=== PATIENT | female | born 1955 | race Caucasian/White ===

== ENCOUNTER 2021-09-17 17:58 | Inpatient (IN) | payer MEDICARE, MEDICAID ==
[2021-09-17] MEDS ORDERED: Albuterol/Ipratropium 3.0-0.5 MG/3 ML Neb Soln NEB ONE ×2 (18:18→18:19)
[2021-09-17] MEDS ORDERED: methylPREDNISolone Sodium Succinate 125 MG/2 ML SDV IVPUSH ONE (18:18)
[2021-09-17] MEDS ORDERED: Codeine/guaiFENesin 10-100 MG/5 ML Syrup 5 ML Cup PO ONE (19:54)
[2021-09-17 19:55] LABS: CARBON DIOXIDE,CO2 28.4 mmol/L (21.0-32.0); POTASSIUM,K 3.8 mmol/L (3.5-5.1)
[2021-09-17] MEDS ORDERED: REMDESIVIR 200 MG in Sodium Chloride 0.9% 250 ML IV ONE (20:16)
[2021-09-17] MEDS ORDERED: Dexamethasone 10 MG/ML SDV IVPUSH ONE (20:18)
[2021-09-17] MEDS ORDERED: Ondansetron 4 MG/2 ML SDV IVPUSH PRN (21:38)
[2021-09-17] MEDS ORDERED: Albuterol/Ipratropium 3.0-0.5 MG/3 ML Neb Soln NEB PRN (21:38)
[2021-09-17] MEDS ORDERED: Acetaminophen 325 MG Tab PO PRN (21:38)
[2021-09-17] MEDS: Pantoprazole 40 MG in Sodium Chloride 0.9% 10 ML IVPUSH SCH (22:44)
[2021-09-17] MEDS: Nicotine 14 MG/24 Hr Patch TRDERM SCH (22:44)
[2021-09-18] MEDS ORDERED: LORazepam 2 MG/ML SDV IVPUSH ONE (00:16)
[2021-09-18] MEDS: Morphine 30 MG Tab.ER PO SCH ×3 (00:32→22:58)
[2021-09-18] MEDS: Gabapentin 300 MG Cap PO SCH ×3 (00:33→20:46)
[2021-09-18] MEDS: Acetaminophen/HYDROcodone 325-10 MG Tab PO PRN ×2 (00:33→20:46)
[2021-09-18] MEDS ORDERED: Cyclobenzaprine 10 MG Tab PO PRN (02:46)
[2021-09-18] MEDS ORDERED: Lactated Ringers 1,000 ML IV ONE ×2 (03:55→18:12)
[2021-09-18] MEDS ORDERED: Lactated Ringers 1,000 ML IV SCH (05:00)
[2021-09-18] MEDS: Piperacillin/Tazobactam 3.375 GM in Sodium Chloride 0.9% 50 ML IV SCH ×4 (05:18→22:59)
[2021-09-18 07:50] LABS: CARBON DIOXIDE,CO2 24.1 mmol/L (21.0-32.0); POTASSIUM,K 4.3 mmol/L (3.5-5.1)
[2021-09-18] MEDS: Dexamethasone 4 MG Tab PO SCH (09:39)
[2021-09-18] MEDS: Nicotine 14 MG/24 Hr Patch TRDERM SCH (09:40)
[2021-09-18] MEDS: REMDESIVIR 100 MG in Sodium Chloride 0.9% 100 ML IV SCH (10:55)
[2021-09-18] MEDS ORDERED: Lactated Ringers 500 ML IV ONE (12:39)
[2021-09-18] MEDS: Warfarin Sliding Scale PO SCH (16:08)
[2021-09-18] MEDS ORDERED: Magnesium Sulfate/Water 2 GM in Premix Bag 1 BAG IV ONE (16:48)
[2021-09-18] MEDS: Benzonatate 100 MG Cap PO PRN (20:46)
[2021-09-18] MEDS ORDERED: ZOLPIDEM TARTRATE 5 MG PO SCH (21:00)
[2021-09-18] MEDS: Pantoprazole 40 MG in Sodium Chloride 0.9% 10 ML IVPUSH SCH (22:59)
[2021-09-18] MEDS: Carvedilol 3.125 MG Tab PO SCH (23:00)
[2021-09-19] MEDS: Piperacillin/Tazobactam 3.375 GM in Sodium Chloride 0.9% 50 ML IV SCH ×2 (04:24→10:05)
[2021-09-19 08:06] LABS: CARBON DIOXIDE,CO2 27.8 mmol/L (21.0-32.0); POTASSIUM,K 4.1 mmol/L (3.5-5.1)
[2021-09-19] MEDS: Carvedilol 3.125 MG Tab PO SCH ×2 (10:08→20:09)
[2021-09-19] MEDS: Dexamethasone 4 MG Tab PO SCH (10:08)
[2021-09-19] MEDS: Gabapentin 300 MG Cap PO SCH ×2 (10:09→20:07)
[2021-09-19] MEDS: Furosemide 20 MG Tab PO SCH (10:09)
[2021-09-19] MEDS: Nicotine 14 MG/24 Hr Patch TRDERM SCH (10:16)
[2021-09-19] MEDS: REMDESIVIR 100 MG in Sodium Chloride 0.9% 100 ML IV SCH (11:43)
[2021-09-19] MEDS: Morphine 30 MG Tab.ER PO SCH ×2 (11:43→22:53)
[2021-09-19] MEDS ORDERED: SUMAtriptan 50 MG Tab PO PRN (11:45)
[2021-09-19] MEDS: Levofloxacin 750 MG Tab PO SCH (12:19)
[2021-09-19] MEDS: Warfarin Sliding Scale PO SCH (13:18)
[2021-09-19] MEDS ORDERED: Warfarin 5 MG Tab PO SCH (14:00)
[2021-09-19] MEDS: Acetaminophen/HYDROcodone 325-10 MG Tab PO PRN (20:09)
[2021-09-19] MEDS: Benzonatate 100 MG Cap PO PRN (22:53)
[2021-09-19] MEDS: Pantoprazole 40 MG in Sodium Chloride 0.9% 10 ML IVPUSH SCH (22:53)
[2021-09-20 07:15] LABS: CARBON DIOXIDE,CO2 29.7 mmol/L (21.0-32.0); POTASSIUM,K 3.7 mmol/L (3.5-5.1)
[2021-09-20] MEDS: REMDESIVIR 100 MG in Sodium Chloride 0.9% 100 ML IV SCH (08:50)
[2021-09-20] MEDS: Carvedilol 3.125 MG Tab PO SCH (08:51)
[2021-09-20] MEDS: Gabapentin 300 MG Cap PO SCH (08:51)
[2021-09-20] MEDS: Furosemide 20 MG Tab PO SCH (08:52)
[2021-09-20] MEDS: Dexamethasone 4 MG Tab PO SCH (08:52)
[2021-09-20] MEDS: Nicotine 14 MG/24 Hr Patch TRDERM SCH (08:58)
[2021-09-20] MEDS: Benzonatate 100 MG Cap PO PRN (09:01)
[2021-09-20] MEDS: Acetaminophen/HYDROcodone 325-10 MG Tab PO PRN (09:01)
[2021-09-20] MEDS ORDERED: Fluticasone/Salmeterol 100-50 MCG Inhalation Powder 14/Diskus INH SCH (10:15)
[2021-09-20] MEDS: Morphine 30 MG Tab.ER PO SCH (10:57)
[2021-09-20] MEDS: Levofloxacin 750 MG Tab PO SCH (10:58)
[2021-09-20] MEDS ORDERED: Warfarin 5 MG Tab PO SCH (14:00)
[2021-09-20 14:29] VITALS: BP 164/100; PULSE 96
[2021-09-20] MEDS: Warfarin Sliding Scale PO SCH (14:42)
== END 2021-09-20 14:30 | disposition home or self-care (01) | DRG 177 ==
LOC: MW.ED 17:58 → MW.MS 20:55
PROVIDERS: ADMIT Student in an Organized Health Care Education/Training Program; ATTEND Student in an Organized Health Care Education/Training Program
PROC: 8E0ZXY6 Isolation (ICD-10-PCS; principal; 2021-09-17)
PROC: XW033E5 Introduction of Remdesivir Anti-infective into Peripheral Vein, Percutaneous Approach, New Technology Group 5 (ICD-10-PCS; 2021-09-17)
PROC: 3E0333Z Introduction of Anti-inflammatory into Peripheral Vein, Percutaneous Approach (ICD-10-PCS; 2021-09-17)
DX: U07.1 COVID-19 (principal); J12.82 Pneumonia due to coronavirus disease 2019; J96.01 Acute respiratory failure with hypoxia; E87.6 Hypokalemia; G89.29 Other chronic pain; J96.91 Respiratory failure, unspecified with hypoxia; I10 Essential (primary) hypertension; E83.42 Hypomagnesemia; J44.9 Chronic obstructive pulmonary disease, unspecified; Z85.07 Personal history of malignant neoplasm of pancreas; Z87.891 Personal history of nicotine dependence; K21.9 Gastro-esophageal reflux disease without esophagitis; Z86.718 Personal history of other venous thrombosis and embolism; Z79.1 Long term (current) use of non-steroidal anti-inflammatories (NSAID); Z79.01 Long term (current) use of anticoagulants; Z87.01 Personal history of pneumonia (recurrent); Z85.038 Personal history of other malignant neoplasm of large intestine; Z90.49 Acquired absence of other specified parts of digestive tract; Z90.81 Acquired absence of spleen; Z98.890 Other specified postprocedural states; Z90.89 Acquired absence of other organs; Z79.899 Other long term (current) drug therapy; Z88.2 Allergy status to sulfonamides; Z88.0 Allergy status to penicillin; Z91.013 Allergy to seafood
CPT/HCPCS: 36415; 71045; 80053; 82248; 83880; 84484; 85025; 85610; 86140; 93005; 96374; 96375; 99285; A9270; J1100; J2930; U0002; 83605; 83735; 84100; 87040; 93010; 93306; 99221; 99233; 99239; 99291; C9113; J2060; J2543; J3475; J3490; J7050; J7120; J7620-GY; J8540

== ENCOUNTER 2021-10-27 19:16 | Emergency (ER) | payer MEDICARE, MEDICAID ==
[2021-10-27] MEDS ORDERED: Cyclobenzaprine 10 MG Tab PO ONE (20:51)
[2021-10-27] MEDS ORDERED: Ketorolac 30 MG/ML SDV IM ONE (20:51)
[2021-10-27] MEDS ORDERED: fentaNYL 50 MCG/ML SDV IM ONE (22:10)
[2021-10-27 23:48] VITALS: BP 129/89; PULSE 104
== END 2021-10-27 23:48 | disposition home or self-care (01) ==
LOC: MW.ED 19:16
DX: M43.6 Torticollis (principal); I10 Essential (primary) hypertension; K21.9 Gastro-esophageal reflux disease without esophagitis; Z79.899 Other long term (current) drug therapy
CPT/HCPCS: 72125; 96372; 99283; A9270; J1885; J3010